=== PATIENT | female | born 1975 | race Caucasian/White ===

== ENCOUNTER 2025-02-05 06:58 | Outpatient (CLI) | payer OTHER, SELFPAY ==
--- NOTE | 2025-02-02 14:15 | CER_PTH ---
PATIENT: CHAVEZ ESPINOSA LOC: [facility] U#:[id number] AGE/SX: 50/F ROOM: RE02/05/[address]: Dr. Lacey Berumen DO : 1975 BED: DIS: 02/05/2025 SPEC #: [id number] RECD: 02/02/25 16:58 STATUS: JANA MANJU #: [id number] RIVER: 02/02/25 14:[address]: Lacey Berumen DEPT: SURGICAL PATHOLOGY RECD BY: Ghulam Raymond Tissues: A - Endocervical B - Uterine cervix, NOS Procedures: Surgery Specimen Level IV HEADER OPERATION: Colposcopy PRE-OP DIAGNOSIS: ASCUS HPV+ TISSUE SUBMITTED: A- ECC, B- 7o'clock MICROSCOPIC DIAGNOSIS A. Endocervix, ASCUS, HPV positive, curettage: - Focal atypical squamous mucosa with probable dysplasia - see note. - Scant benign endocervical epithelium. Note: The squamous epithelial fragment is very small and only a few cell layers thick so it is difficult to assess the dysplasia. A high grade dysplasia cannot be ruled out. B. Cervix, 7 o'clock, ASCUS, HPV positive, biopsy: - High grade SANTO (moderate dysplasia, YUE 2). MICROSCOPIC DESCRIPTION Slides are reviewed. GROSS DESCRIPTION Received in 2 formalin containers labeled with the patient's name and date of . A. Received in formalin labeled with the patient's name and date of . Designated as ECC are flecks of translucent mucoid material and possible tissue which is entirely submitted in 1 cassette, for cellblock preparation. B. Received in formalin labeled with the patient's name and date of . Designated as 7 o'clock are multiple capps tissue fragments, <0.1 cm to 0.3 cm. Entirely submitted in 1 cassette. SD 02/05/2025 CPT:95973p2
--- NOTE | 2025-02-02 14:15 | CER_PTH ---
PATIENT: CHAVEZ ESPINOSA LOC: [facility] U#:[id number] AGE/SX: 50/F ROOM: RE02/05/[address]: Dr. Lacey Berumen DO : 1975 BED: DIS: 02/05/2025 SPEC #: [id number] RECD: 02/02/25 16:58 STATUS: JANA MANJU #: [id number] RIVER: 02/02/25 14:[address]: Lacey Berumen DEPT: SURGICAL PATHOLOGY RECD BY: Ghulam Raymond Tissues: A - Endocervical B - Uterine cervix, NOS Procedures: Surgery Specimen Level IV HEADER OPERATION: Colposcopy PRE-OP DIAGNOSIS: ASCUS HPV+ TISSUE SUBMITTED: A- ECC, B- 7o'clock MICROSCOPIC DIAGNOSIS A. Endocervix, ASCUS, HPV positive, curettage: - Focal atypical squamous mucosa with probable dysplasia - see note. - Scant benign endocervical epithelium. Note: The squamous epithelial fragment is very small and only a few cell layers thick so it is difficult to assess the dysplasia. A high grade dysplasia cannot be ruled out. B. Cervix, 7 o'clock, ASCUS, HPV positive, biopsy: - High grade SANTO (moderate dysplasia, YUE 2). MICROSCOPIC DESCRIPTION Slides are reviewed. GROSS DESCRIPTION Received in 2 formalin containers labeled with the patient's name and date of . A. Received in formalin labeled with the patient's name and date of . Designated as ECC are flecks of translucent mucoid material and possible tissue which is entirely submitted in 1 cassette, for cellblock preparation. B. Received in formalin labeled with the patient's name and date of . Designated as 7 o'clock are multiple capps tissue fragments, <0.1 cm to 0.3 cm. Entirely submitted in 1 cassette. VT 02/05/2025 CPT:66209w9
--- OUTSIDE RECORDS SUMMARY | 2025-02-05 07:05 | XMS RPT_ITS | CCD ---
Author Organization [facility] Care Team Providers Care Environmental Compliance Engineer Name Role Phone PAN REYES Unavailable Unavailable NO FAMILY PHYSICIAN, 837 Unavailable Unavail able REFERRING, PHY WO ID Primary Care Physician Unav ailable REFERRING, PHY WO ID Attending Unavailable REFERRING, PHY WO ID Primary Care Unavailable Dr. Lacey Berumen DO Attending Provider Lacey Berumen Attending Unavailabl e Medications Current Medications Medication Drug Class(es) Dates Sig (Normalized) Sig (Original) Multivitamin tablet (1 source) Start: 02-02-2025 Multivitamin tablet Active 1 {tbl} PO daily February 02, 2025 12:00am Problems Problem Classification Problem Date Documented Date Episodic/Chronic Menopausal disorders (2 sources) Menopausal syndrome; Translations: [Menopausal and female climacteric states] Onset: 02-02-2025 02-02-2025 Chronic Osteoarthritis (1 source) Arthritis; Translations: [Unspecified osteoarthritis, unspecified site] 02-02-2025 Chronic Other complications of (1 source) Abnormal cytological finding on screening of mother; Translations: [Abnormal cytological finding on screening of mother] Onset: 02-02-2025 Episodic Other screening for suspected conditions (not mental disorders or infectious disease) (4 sources) Unspecified abnormal cytological findings in specimens from cervix uteri; Translations: [Encounter for screening for lipoid disorders] Onset: 02-02-2025 Episodic Viral infection (1 source) Papillomavirus as the cause of diseases classified elsewhere; Translations: [Papillomavirus as the cause of diseases classified elsewhere] Onset: 02-02-2025 Episodic Results Test Name Value Interpretation Reference Range Facility Assistant Professor Of Spanish Office Visit Reporton 02-02-2025 Assistant Professor Of Spanish Office Visit Report [facility] [address], [address] [place] [address] OFFICE VISIT Date of Service: 02/02/25 MR#: [id number] Acct: [id number] Name: CHAVEZ ESPINOSA Rep #: [id number] : 1975 Provider: Dr. 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 Is patient in pain?: No Allergies No Known Allergies Allergy (Unverified 02/02/25 13:14) Medications ???Medication ???Instructions ???Recorded ???Confirmed ???Type multivitamin 1 tab PO QDAY 02/02/25 02/02/25 Hi story Post menopausal: No Patient : No : No PFSH Surgical History (Updated 02/02/25 @ 13:15 by Sobeida Coleman) S/P tubal ligation Social History (Updated 02/02/25 @ 13:19 by Sobeida Coleman) adopted: Yes (foster care) Smoking Status: Current every day smoker alcohol intake: former year quit: 2017 substance use type: marijuana what type of physical activity do you participate in: swimming frequency: 3-4 times per week seatbelt use: always do you feel safe at home: Yes additional social history: Boyfriend- Alberto HPI Abnormal Pap, Poss Colposcopy *ok per JV Details: CHAVEZ ESPINOSA is a 50 year old who presents for colposcopy for ascus HPV + pap. She is also tearful about menopause symptoms including fatigue and low libido. She stopped menses at age 38. History 1 Elective abortions Hx Para 1 Spontaneous abortions Hx # Term Pregnancies Ectopic pregnancies Hx # Pregnancies Multiple births # of living children ROS Const ROS Unobtainable: All systems reviewed are unremarkable except as noted in H Resp Resp: Reports system reviewed and no additional complaints, except as documented; Denies cough GI GI: Reports as per HPI Psych Psych: Reports system reviewed and no additional complaints, except as documented Exam Const General: cooperative, healthy appearing, comfortable and no acute distress Resp Effort Inspection: normal respiratory effort General: bimanual renal exam normal bilaterally External Female Exam: normal appearance of the urethra Urethra: normal appearance of the urethra Speculum Exam - Vagina: normal appearance of the vagina Speculum Exam - Cervix: normal appearance of the cervix Bimanual Exam- Adnexa, other: normal adnexae and normal Pelvic Support: normal Skin General: no rashes or lesions noted Psych Appearance: grossly normal Speech and Movement: speech and movement normal Office Procedures Colposcopy Colposcopy Reason for colposcopy: ASCUS and positive HR HPV types Pap/YUE history: previous ASCUS pap Consent Signed: Yes Time out performed: Yes Acetowhite epithelium (cervix): 7 o'clock Punctation (cervix): none Abnormal vessels (cervix): 7 o'clock Biopsies (cervix): 7 o'clock biopsy Details: acetic acid was applied to the cervix and abnormal vessels and acetowhite changes were noted afrom 9:00 to 6:00. a biopsy ws taken at 7:00 and ECC was collected. Silver nitrite was used for hemostasis. Coding Level of Care Code Off vis,new,level 5 Diagnoses Female climacteric state N95.1 Assessment and Plan Assessment and Plan (1) Female climacteric state: Status: Deleted Plan: colposcopy with biopsy done today will order dexa, mammogram , and baseline labs to start the discussion about HRT. Her breast cancer risk calculator showed low risk for breast cancer 0.6% in 5 years. will need ASCVD risk assessment . Orders: Orders Colposcopy Today B97.7 - Papillomavirus as the cause of diseases classified elsewhere, O28.2 - Abnormal cytological finding on screening of mother, R87.619 - Unspecified abnormal cytological findings in specimens from cervix uteri Lipid Profile Today Z13.220 - Encounter for screening for lipoid disorders Glucose Today Z13.1 - Encounter for screening for diabetes mellitus Vitamin D,25 Hydroxy Today N95.1 - Menopausal and female climacteric states Thyroid Stim Hormone (TSH) Today Z13.29 - Encounter for screening for other suspected endocrine disorder Dexa Bone Density Study Today SCRN MAMM (CAD)W/MIRYAM BILAT Today 02/02/25 1400 Date Lacey Don Signature: Date (if applicable) CC: Normal [facility] XR HAND TWO VIEWS RIGHTon XR HAND TWO VIEWS RIGHT ORIGINAL EXAMINATION: TWO XRAY VIEWS OF THE RIGHT HAND 11/14/2022 11:38 am COMPARISON: None. HISTORY: ORDERING SYSTEM PROVIDED HISTORY: Reason for Exam: Pain entire right hand. No recent injury. FINDINGS: No fracture or dislocation of the right hand is present. There is moderate degenerative narrowing and spur formation at the articulation of the trapezium with the 1st metacarpal. Other joint spaces are maintained. There is no bone erosion or periosteal reaction. No soft tissue calcifications or foreign bodies are present. IMPRESSION: Moderate osteoarthrosis at the 1st carpometacarpal junction. Otherwise no remarkable findings. Interpreted by: Jayme Cowan MD Preliminary Report By: Jayme Cowan MD Electronically signed By Jayme Cowan MD Dictated Date: 11/15/2022 5:48:28 AM Prelim Date: 11/15/2022 5:50:13 AM Sign Date: 11/15/2022 5:50:13 AM Ordering Provider: JERI Matos [facility] ALCOHOL SERUMon 01-30-2017 Alcohol, Serum 31 mg/dL Normal [facility] Comment on above: Result Comment: Note : Alcohol values performed at [facility] are performed on Serum and reported in mg/dl, which is different then the state reporting units of g/dl which is performed on whole blood. Result reporting units are based on test methodology and are not interchangable. Performed By: #### 1 [id number] ####[facility] [address] [place] [address] Medical Director: Suman Bell MD Alcohol, Serum 241 mg/dL Normal [facility] Comment on above: Result Comment: Note : Alcohol values performed at [facility] are performed on Serum and reported in mg/dl, which is different then the state reporting units of g/dl which is performed on whole blood. Result reporting units are based on test methodology and are not interchangable. Performed By: #### 1 30119 ####[facility] [address] [place] [id number] Medical Director: Suman Bell MD AUTO DIFFon 01-30-2017 Basophils Auto #/vol (Bld) 0.12 x1000 Normal 0.00-0.20 [facility] Comment on above: Performed By: #### 1 49311, [id number], 663623, 109487 ####[facility] [address] [place] 28[address] Medical Director: Suman Bell MD Basos % 0.8 % Normal [facility] Comment on above: Performed By: #### 1 95460, [id number], 226164, 726235 ####[facility] [address] [place] [address] Medical Director: Suman Bell MD Eos Count 0.13 x1000 Normal 0.00-0.50 [facility] Comment on above: Performed By: #### 1 06997, 5069139, 153048, 633134 ####[facility] [address] [place] [address] Medical Director: Suman Bell MD Eosinophils/100 leukocytes 0.8 % Normal [facility] Comment on above: Performed By: #### 1 95022, 1546567, 708592, 738815 ####[facility] [address] [place] [address] Medical Director: Suman Bell MD Lymphocytes 3.69 x1000 Normal 1.20-4.80 [facility] Comment on above: Performed By: #### 1 16003, 8152365, 453349, 948277 ####[facility] [address] [place] [address] Medical Director: Suman Bell MD Lymphocytes/100 leukocytes 23.7 % Normal [facility] Comment on above: Performed By: #### 1 83496, 8154794, 558605, 626550 ####[facility] [address] [place] [address] Medical Director: Suman Bell MD [place] Count 0.58 x1000 Normal 0.10-1.00 [facility] Comment on above: Performed By: #### 1 22584, 0807834, 356365, 189511 ####[facility] [address] [place] [address] Medical Director: Suman Bell MD Monocytes/100 leukocytes 3.7 % Normal [facility] Comment on above: Performed By: #### 1 89083, 3084587, 311362, 412689 ####[facility] [address] [place] [address] Medical Director: Suman Bell MD Neutrophils 11.04 x1000 High 1.40-8.80 [facility] Comment on above: Performed By: #### 1 02048, 4923196, 892997, 039929 ####[facility] [address] [place] [address] Medical Director: Suman Bell MD Neutrophils/100 WBC Auto (Bld) 70.9 % Normal [facility] Comment on above: Performed By: #### 1 44146, 7728924, 509356, 454632 ####[facility] [address] [place] [address] Medical Director: Suman Bell MD Behavioral Health Consultati onon 01-30-2017 Behavioral Health Consultation Spoke with Sulaiman at [facility]. Stated he would send her information through to the pillowcase folder who will be in touch. Normal [facility] COMPMETAon 01-30-2017 Globulin 3.7 g/dL Normal [facility] Comment on above: Performed By: #### 1 33254, 6528594, 515104, 008967 ####[facility] [address] [place] [address] Medical Director: Suman Bell MD BUN/Creatinine Ratio 16.9 mg/mg Normal [facility] Comment on above: Performed By: #### 1 68771, 9961464, 864579, 084809 ####[facility] [address] [place] [address] Medical Director: Suman Bell MD eGFR (non-black) mL/min/{1.73_m2} Normal [facility] Comment on above: Result Comment: Non GFR CalcMedical judgement is necessary to interpret GFR. The calculated GFR may not accurately reflect renal status in patients >70 years, women, acutely ill hospitalized patients and patients with acute renal failure or known renal disease.Note:Creatinine clearance (not GFR) should be used for drug dosing. Performed By: #### 1 53518, 1030678, 465107, 616618 ####[facility] [address] [place] [address] Medical Director: Suman Bell MD Albumin/Globulin Ratio 1.1 {ratio} Normal [facility] Comment on above: Performed By: #### 1 70657, 4917138, 288148, 474906 ####[facility] [address] [place] [address] Medical Director: Suman Bell MD Osmolality 277 mOsm/kg Normal 275-295 [facility] Comment on above: Performed By: #### 1 , 6356060, 147784, 844688 ####[facility] [address] [place] [address] Medical Director: Suman Bell MD Alk Phos 84 unit/L Normal 45-117 [facility] Comment on above: Performed By: #### 1 56385, 0595248, 379359, 451026 ####[facility] [address] [place] [address] Medical Director: Suman Bell MD eGFR (non-black) mL/min/{1.73_m2} Normal [facility] Comment on above: Result Comment: Afri can Bangladeshi GFR Calc Performed By: #### 1 47074, 8070575, 467029, 583843 ####[facility] [address] [place] [address] Medical Director: Suman Bell MD Protein 7.6 g/dL Normal 6.0-8.5 [facility] Comment on above: Performed By: #### 1 68111, 0823455, 216926, 949313 ####[facility] [address] [place] [address] Medical Director: Suman Bell MD Bilirubin (total) 0.20 mg/dL Normal 0.20-1.00 [facility] Comment on above: Performed By: #### 1 55481, 6571612, 076230, 685598 ####[facility] [address] [place] [address] Medical Director: Suman Bell MD Creatinine 0.7 mg/dL Normal 0.6-1.0 [facility] Comment on above: Performed By: #### 1 57628, 7295748, 774696, 777857 ####[facility] [address] [place] [address] Medical Director: Suman Bell MD GPT 20 unit/L Normal 13-56 [facility] Comment on above: Performed By: #### 1 93129, 9852481, 806177, 476789 ####[facility] [address] [place] [address] Medical Director: Suman Bell MD Glucose mass conc 64 mg/dL Low 72-100 [facility] Comment on above: Performed By: #### 1 71402, 2228632, 384235, 847691 ####[facility] [address] [place] [address] Medical Director: Suman Bell MD GOT 22 unit/L Normal 15-37 [facility] Comment on above: Performed By: #### 1 76111, 8881393, 338209, 563956 ####[facility] [address] [place] [address] Medical Director: Suman Bell MD CO2 19.7 mmol/L Low 21.0-32.0 [facility] Comment on above: Performed By: #### 1 01093, 1171931, 158574, 542626 ####[facility] [address] [place] [address] Medical Director: Suman Bell MD Urea nitrogen 11 mg/dL Normal 10-20 [facility] Comment on above: Performed By: #### 1 28147, 5111305, 754655, 924464 ####[facility] [address] [place] [address] Medical Director: Suman Bell MD Albumin 3.9 g/dL Normal 3.4-5.0 [facility] Comment on above: Performed By: #### 1 44750, 9398777, 237881, 357605 ####[facility] [address] [place] [address] Medical Director: Suman Bell MD Calcium 8.5 mg/dL Normal 8.5-10.5 [facility] Comment on above: Performed By: #### 1 42611, 4961288, 940525, 313772 ####[facility] [address] [place] [address] Medical Director: Suman Bell MD Sodium 140 mmol/L Normal 135-145 [facility] Comment on above: Performed By: #### 1 37256, 6993545, 512695, 052519 ####[facility] [address] [place] [address] Medical Director: Suman Bell MD Potassium molar conc 4.0 mmol/L Normal 3.5-5.1 [facility] Comment on above: Performed By: #### 1 02835, 6861221, 956671, 246937 ####[facility] [address] [place] [address] Medical Director: Suman Bell MD Chloride 111 mmol/L High 100-109 [facility] Comment on above: Performed By: #### 1 68442, 6215554, 440180, 626960 ####[facility] [address] [place] [address] Medical Director: Suman Bell MD ED Physician Reporton 2016 ED Physician Report Patient: CHAVEZ ESPINOSA Age: 42 years Sex: Female : 1975 Associated Diagnoses: Acute depression; Alcohol abuse Author: DARRICK SALAZAR MD Basic Information Time seen: Time Seen:DARRICK SALAZAR MD / 01/29/2017 22:58. History source: Patient. Arrival mode: Private vehicle. History limitation: None. Additional information: Patient's physician(s): None. History of Present Illness The patient presents with Suicidal thoughts. The onset was unknown. The course/duration of symptoms is constant. Character of symptoms suicidal thoughts. Risk factors consist of alcohol abuse and PTSD. 42 year old female with history of PTSD presents to the ED for evaluation of suicidal thoughts. Pt does not deny or admit to suicidal ideation, but states she cannot sleep or function and she just wants it to stop. Pt admits to recent EtOH abuse history and that she has been trying to stop. She states she does not drink every day, she does not experience withdrawal symptoms, and that she just uses EtOH as a crutch. Pt states today was different because she started drinking and did not want to stop until she did not feel anything. She reports history of a hurt from the that never leaves her, stating it was something she did and something that was done to her. Pt is evasive with her answers and speaks with hesitation. She reports having a daughter and friends, but denies recent stress. Pt has no history of prior psych hospitalization, denies seeing a psychiatrist, and [facility] medical care [facility]. She has no medical complaints at this time. Pt voices concerns about going to alf and is anxious to go home. Pt's friend reports pt had tingling traveling down her arm one month ago [facility] which [facility] Patient voices no other concerns at this time. . Review of Systems Constitutional symptoms: Negative except as documented in HPI. Skin symptoms: Negative except as documented in HPI. Eye symptoms: Negative except as documented in HPI. ENMT symptoms: Negative except as documented in HPI. Respiratory symptoms: Negative except as documented in HPI. Cardiovascular symptoms: Negative except as documented in HPI. Gastrointestinal symptoms: Negative except as documented in HPI. Genitourinary symptoms: Negative except as documented in HPI. Musculoskeletal symptoms: Negative except as documented in HPI. Psychiatric symptoms: Negative except as documented in HPI. Endocrine symptoms: Negative except as documented in HPI. Hematologic/Lymphatic symptoms: Negative except as documented in HPI. Allergy/immunologic symptoms: Negative except as documented in HPI. Neurologic symptoms Negative except as documented in HPI. Additional review of systems information: All other systems reviewed and otherwise negative. Health Status Allergies: Allergic Reactions (All)No Known Allergies. Medications: (Selected) , per nurse's notes. Past Medical/ Family/ Social History Medical history: No active or resolved past medical history items have been selected or recorded., Reviewed as documented in chart. Surgical history: No active procedure history items have been selected or recorded., Reviewed as documented in chart. Family history: No family history items have been selected or recorded., Reviewed as documented in chart. Social history: Alcohol use: Regularly, history of alcohol abuse. Problem list: Active Problems (2)PTSD (post-traumatic stress disorder) Suicidal thoughts , per nurse's notes. Physical Examination Vital Signs Vital Signs 01/29/2017 22:54 EDT Temperature Oral 37.4 degC HI Peripheral Pulse Rate 122 bpm HI Respiratory Rate 16 br/min NORMAL Systolic Blood Pressure 124 mmHg NORMAL Diastolic Blood Pressure 84 mmHg NORMAL SpO2 95 % NORMAL Oxygen Therapy Room air Height/Length Dosing 157.48 cm Weight Dosing 59.1 kg Body Mass Index Dosing 24 . Per nurse's notes. General: Alert. Skin: Warm, dry, no rash. Head: Normocephalic, atraumatic. Neck: Supple, trachea midline. Eye: Pupils are equal, round and reactive to light, extraocular movements are intact. Ears, nose, mouth and throat: Oral mucosa moist. Cardiovascular: Regular rate and rhythm, No murmur, No edema. Respiratory: Lungs are clear to auscultation, respirations are non-labored, breath sounds are equal. Gastrointestinal: Soft, Nontender, Non distended, Normal bowel sounds. Back: Normal range of motion. Musculoskeletal: Normal ROM, normal strength. Psychiatric: Evasive, tearful. Neurological Alert and oriented to person, place, time, and situation, No focal neurological deficit observed, normal sensory observed, normal motor observed, normal speech observed. Medical Decision Making Documents reviewed: Emergency department nurses' notes, flowsheet, emergency department records, prior records. Results review: Lab results : Laboratory 01/30/2017 0:59 EDT Estimated Creatinine Clearance 81.11 mL/min 01/29/2017 23:48 EDT BUN 11 mg/dL NORMAL Na 140 mmol/L NORMAL K 4.0 mmol/L NORMAL Chloride 111 mmol/L HI CO2, venous 19.7 mmol/L LOW Glucose 64 mg/dL LOW Creatinine 0.7 mg/dL NORMAL Total Protein 7.6 g/dL NORMAL Calcium 8.5 mg/dL NORMAL Bilirubin, Total 0.20 mg/dL NORMAL Alk Phos 84 unit/L NORMAL GOT 22 unit/L NORMAL GPT 20 unit/L NORMAL BUN/Creat Ratio 16.9 NA Calculated Osmolality 277 mOsm/kg NORMAL Globulin 3.7 g/dL NA A/G Ratio 1.1 NA Free T4 1.11 ng/dL NORMAL TSH 0.58 uIU/ml NORMAL ALB 3.9 g/dL NORMAL Alcohol, Serum 241 mg/dL NA Glomerular Filtration Rate >60 mL/min/1.73m? NA GFR AA >60 NA WBC 15.6 x10 RBC 4.42 x10 HGB 14.5 g/dL NORMAL HCT 43.3 % NORMAL MCV 98.0 fL NORMAL MCH 32.8 pg NORMAL MCHC 33.5 g/dL NORMAL RDW 13.6 NORMAL Platelet 310 x1000 NORMAL MPV 8.9 fL NORMAL Nucleated RBC% 0 /100WC NA Lymph % 23.7 % NA [place] % 3.7 % NA Neutrophil % 70.9 % NA Eosin % 0.8 % NA Basos % 0.8 % NA Lymph Count 3.69 x1000 NORMAL [place] Count 0.58 x1000 NORMAL Neutrophil Count (ANC) 11.04 x1000 HI Eos Count 0.13 x1000 NORMAL Baso Count 0.12 x1000 NORMAL 01/29/2017 22:52 EDT Color, U Yellow Appearance, U Clear Specific [place], U 1.011 NORMAL pH, U 5.0 NORMAL Protein, U Negative Glucose Qual, U Negative Ketones, U Trace Bilirubin, U Negative Blood, U Moderate Urobilinogen Qual, U <2.0 mg/dl Nitrite, U Negative Leukocyte Esterase, U Negative RBC/HPF, U <1 #/HPF NORMAL WBC/HPF, U 1 #/HPF NORMAL Squamous Epithelial Cells, U 1 #/HPF NA Bacteria, U Occasional Hyaline Cast <1 #/HPF NA Amphetamines, U Negative Barbituates, U Negative PCP, U Negative Benzodiazepines, U Negative Cocaine, U Negative THC, U Negative Opiates, U Negative Ecstasy, U Negative . Patient was observed until clinically sober. She is medically cleared for psychiatric evaluation. She will be evaluated by [place] when they arrive at 8 AM today. [facility] Reexamination/ Reevaluation Notes: Re-examSpoke with friend outside pt's room. He mentioned she threatened to eat a bullet which was his concern for bringing her into the ED. Friend states they do have guns, but he currently took them out of the house. Scribe signature: micheal Sue 01/30/2017, 03:55.. Impression and Plan Diagnosis Acute depression (VDV66-TW F32.9, Working, Medical) Alcohol abuse ([id number] F10.10, Working, Medical) Plan Counseled: Patient, Family, Regarding diagnosis, Regarding diagnostic results, Regarding treatment plan, Patient indicated understanding of instructions, Family understood. Notes: I, Lulú Franklin, am scribing for and in the presence of Dr. Darrick Salazar [facility] Signature: Micheal Sue, 01/29/2017 23:38 , I personally performed the services described in the documentation, reviewed the documentation recorded by the scribe in my presence and it accurately and completely records my words and actions. Fred SALAZAR MD 01/30/2017 06:39 Normal [facility] ED Progress Noteon 7 ED Progress Note Pt arrived with c/o suicidal thoughts. Pt states I am crazy, I can't explain it I can't focus. 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 Pt states she can't stop the hurt and guilt, it doesn't go away, even when she closes her eyes. Pt states she was drinking daily and that helped, but tried to stop drinking, now drinking several days/week and having insomnia. Pt states she feels guilty that she is a mother and she doesn't know how to function anymore. Pt speaking with pauses in between each word. Friend at bedside. Pt tearful, emotional support given.When asked if she's suicidal or if she has a plan, pt does not directly answer questions. Pt states it's not that I want to eat a bullet.When asked if pt takes medication at home she states she drinks alcohol. When asked how much she drinks she states too much. Pt states she drinks beer, wine and liquer.0200- patient moved up from another exam room assumed care from RN pt sitting up in bed with no c/o pain or signs of distress. friend at bedside. call coyle within reach and safety maintained.- pt resting quietly with eyes closed and no signs of distress. friend still at the bedside. call coyle within reach and safety maintained.error 0200 report from Dimitri [id number]- pt resting quietly at this time with eyes closed and no signs of distress. friend is at bedsdie and denied any needs. call coyle within reach and safety maintained.0502 patient resting quietly at this time with eyes closed no signs of distress. friend at bedside. call coyle within reach and safety maintained.0608 patient resting quietly with eyes closed and no signs of distress. friend at bedside. call coyle within reach and safety maintained.0638- pat resting quietly at this time with no signs of distress awoke easily when I obtained her vitals pt was cooperative and calm. pt had no signs of distress. friend is still at the bedside. call coyle within reach and safety maintained.0702 placed a repeat blood alcohol serum per protocol patient is resting quietly at this time with eyes closed no signs of distress. friend is at the bedside. call coyle within reach and safety maintained.0712- behavioral health credit specialist in the room currently with the patient.0717- report given aliza RNverbal report called to DC [facility]. pt is ready for transfer to [id number]- ASSUMED CARE OF PTPT RESTING IN BEDC/O 10/19 HEADACHE- DENIES PAIN MEDS AT THIS TIMEUPDATED [facility]/O AT THIS TIMEREPORT CALLED TO DC BY PREVIOUS NURSESAFETY [id number] PHYSICIANS CALLED FOR UPDATED ON ETA- THEY ARE PULLING INTO THE HOSPITAL [id number]- PT D/C VIA PHYSICIANS TO [facility] WITH [id number]- LATE ENTRY- JEWERLY TAKEN OFF, LABELED AND PLACED IN BELONGINGS -- 1 PAIR OF EARRINGS, BRACELET AND 3 RINGS Normal [facility] HEMOon 01-30-2017 DIFF? No Normal [facility] Comment on above: Performed By: #### 1 89626, [id number], 455262, 419132 ####[facility] [address]chpt[address]39[address] [place] [address] Medical Director: Suman Bell MD Erythrocyte distribution width Auto Ratio (RBC) 13.6 % Normal 11.5-14.5 [facility] Comment on above: Performed By: #### 1 03081, [id number], 250612, 800381 ####[facility] Qwkjkvep80253 [place], [place] [id number]) [phone] Director: Suman Bell MD Erythrocytes (RBC) 4.42 x10 Normal 4.20-5.40 [facility] Comment on above: Result Comment: Note : RBC morphology is normal unless otherwise stated. Evaluation performed only if differential is requested. Performed By: #### 1 98464, [id number], 084835, 413738 ####[facility] [address]qrsvzl48834 [place] [address] Medical Director: Suman Bell MD Hematocrit (HCT) 43.3 % Normal 36.0-46.0 [facility] Comment on above: Performed By: #### 1 32027, 0748707, 444429, 088401 ####[facility] [address]robbj77166 [place] [address] Medical Director: Suman Bell MD Hemoglobin mass conc (Bld) 14.5 g/dL Normal 12.0-16.0 [facility] Comment on above: Performed By: #### 1 54185, [id number], 148543, 713190 ####[facility] I[address]ypwa[address] [place] [address] Medical Director: Suman Bell MD MCH 32.8 pg Normal 27.0-34.0 [facility] Comment on above: Performed By: #### 1 15435, [id number], 902416, 520119 ####[facility] [address]ecqdv07[address] [place] [address] Medical Director: Suman Bell MD MCHC mass conc (RBC) 33.5 g/dL Normal 32.0-37.0 [facility] Comment on above: Performed By: #### 1 25908, 5320669, 537986, 329213 ####[facility] [address]fmbh[address] [place] [address] Medical Director: Suman Bell MD MCV 98.0 fL Normal 80.0-100.0 [facility] Comment on above: Performed By: #### 1 18584, 2683051, 142067, 908994 ####[facility] Cpsuttgc996[address] [place] [address] Medical Director: Suman Bell MD Nucleated RBC% 0 /100WC Normal [facility] Comment on above: Performed By: #### 1 90987, 0638602, 318406, 470190 ####[facility] Nrgyncgf56440 [place] [address] Medical Director: Suman Bell MD Platelet mean volume (PMV) 8.9 fL Normal 7.4-10.4 [facility] Comment on above: Performed By: #### 1 47567, 6233933, 738301, 586471 ####[facility] [address]fh[address]qa12[address] [place] [address] Medical Director: Suman Bell MD Platelets 310 x1000 Normal 150-450 [facility] Comment on above: Performed By: #### 1 47922, 6940453, 710721, 026138 ####[facility] [address]oyvjy64253 [place] [address] Medical Director: Suman Bell MD WBC (Leukocytes) 15.6 x10 High 4.5-11.0 [facility] Comment on above: Performed By: #### 1 15525, 2321212, 826949, 333470 ####[facility] [address]pe[address]ie[address] [place] [address] Medical Director: Suman Bell MD WBC (Leukocytes) 15.6 10*3/uL Normal [facility] Comment on above: Performed By: #### 1 23262, 6475422, 046146, 576347 ####[facility] [address]gyu[address] [place] [address] Medical Director: Suman Bell MD THY GPon 01-30-2017 Thyroid stimulating hormone (TSH) 0.58 uIU/ml Normal 0.36-3.74 [facility] Comment on above: Performed By: #### 1 26492, 3856664, 036700, 390649 ####[facility] Busvpymj52970 [place] [address] Medical Director: Suman Bell MD Thyroxine (T4) free 1.11 ng/dL Normal 0.76-1.46 [facility] Comment on above: Performed By: #### 1 82359, 5350792, 006170, 112744 ####[facility] [address]cadt[address] [place] [address] Medical Director: Suman Bell MD U DOAon 01-30-2017 Amphetamines, U Negative Normal [facility] Comment on above: Result Comment: Urin e for Drugs of Abuse tests (U Amphetamines, U Barbituates, U PCP, U Benzodiazepines, U Cocaine, U THC, U Opiates & U Ecstasy)provide preliminary test results only. A more specific alternate method must be used in order to obtain a confirmed analytical result. Gas chromatography/mass spectrometry is the preferred confirmatory method. Clinical consideration and professional judgment should be applied to any drug of abuse test result, particularly when preliminary positive results are used.Urine for Drugs of Abuse [place] Levels:Barbiturate 200 ng/ml PCP 25 ng/ml Cocaine 300 ng/ml Opiates 2000 ng/ml Amphetamines 1000 ng/ml Benzodiazepines 200 ng/ml THC 50 ng/ml EXTC 500 ng/ml Performed By: #### 1 52469 ####[facility] [address]mkn914[address] [place] [address] Medical Director: Suman Bell MD Barbituates, U Negative Normal [facility] Comment on above: Performed By: #### 1 80431 ####[facility] [address]nmsnkst12692 [place] [address] Medical Director: Suman Bell MD Benzodiazepines, U Negative Normal [facility] Comment on above: Performed By: #### 1 77614 ####[facility] [address]meseurv71489 [place] [address] Medical Director: Suman Bell MD Cocaine, U Negative Normal [facility] Comment on above: Performed By: #### 1 14898 ####[facility] [address]xyktzdh667[address] [place] [address] Medical Director: Suman Bell MD Ecstasy, U Negative Normal [facility] Comment on above: Performed By: #### 1 84408 ####[facility] Zhzaytfa88827 [place] [address] Medical Director: Suman Bell MD Opiates, U Negative Normal [facility] Comment on above: Performed By: #### 1 36216 ####[facility] Sspmvvyv32195 [place], [place] [id number]) [phone] Director: Suman Bell MD PCP, U Negative Normal [facility] Comment on above: Performed By: #### 1 72074 ####[facility] Vkvijdwn44[address] [place], [place] [id number]) [phone] Director: Suman Bell MD THC, U Negative Normal [facility] Comment on above: Performed By: #### 1 95393 ####[facility] Qsvlycne18646 [place], [place] [id number]) [phone] Director: Suman Bell MD UAon 01-30-2017 U MICRO Indicated Normal [facility] Comment on above: Performed By: #### 1 87159 ####[facility] Agnzrmer40261 [place], [place] [id number]) [phone] Director: Suman Bell MD Appearance, U Clear Normal [facility] Comment on above: Performed By: #### 1 79794 ####[facility] Gdbmdvjv43996 [place], [place] [id number]) [phone] Director: Suman Bell MD Bacteria, U Occasional Normal [facility] Comment on above: Performed By: #### 1 33507 ####[facility] Mglnwggp71547 [place], [place] [id number]) [phone] Director: Suman Bell MD Bilirubin (direct) Negative Normal Negative [facility] Comment on above: Performed By: #### 1 00704 ####[facility] Chhrwazz53195 [place], [place] [id number]) [phone] Director: Suman Bell MD Blood, U Moderate Abnormal Negative [facility] Comment on above: Performed By: #### 1 18715 ####[facility] Bxtuijob88922 [place], [place] [id number]) [phone] Director: Suman Bell MD Color, U Yellow Normal [facility] Comment on above: Performed By: #### 1 81850 ####[facility] Aiihqdue73821 [place] [address] Medical Director: Suman Bell MD Erythrocytes (RBC) 10*6/uL Normal 0-3 [facility] Comment on above: Performed By: #### 1 86914 ####[facility] Ehkzmate12560 [place] [address] Medical Director: Suman Bell MD Glucose Qual, U Negative Normal Negative [facility] Comment on above: Performed By: #### 1 26692 ####[facility] Sspsnpax58328 [place] [address] Medical Director: Suman Bell MD Hyaline Cast <1 Normal [facility] Comment on above: Performed By: #### 1 90016 ####[facility] Zxmdtcqj80669 [place] [address] Medical Director: Suman Bell MD Ketones, U Trace Abnormal Negative [facility] Comment on above: Performed By: #### 1 58324 ####[facility] Qqbxekbb77838 [place] [address] Medical Director: Suman Bell MD Leukocyte Esterase, U Negative Normal Negative [facility] Comment on above: Performed By: #### 1 91941 ####[facility] Rrrjvzdq87823 [place] [address] Medical Director: Suman Bell MD Nitrite, U Negative Normal Negative [facility] Comment on above: Performed By: #### 1 11629 ####[facility] Hmkfturm51175 [place] [address] Medical Director: Suman Bell MD pH, U 5.0 Normal 4.5-8.0 [facility] Comment on above: Performed By: #### 1 87438 ####[facility] [address]nsqyhka27231 [place] [address] Medical Director: Suman Bell MD Protein, U Negative Normal Negative [facility] Comment on above: Performed By: #### 1 73074 ####[facility] Uisisbem51959 [place], [place] [id number]) [phone] Director: Suman Bell MD Specific [place], U 1.011 Normal 1.001-1.035 [facility] Comment on above: Performed By: #### 1 57671 ####[facility] Fhyxaxrz41350 [place], [place] [id number]) [phone] Director: Suman Bell MD Squamous Epithelial Cells, U 1 #/HPF Normal [facility] Comment on above: Performed By: #### 1 59110 ####[facility] Lisqgube98412 [place], [place] [id number]) [phone] Director: Suman Bell MD Urobilinogen Qual, U <2.0 mg/dl Normal <2.0 mg/dl [facility] Comment on above: Result Comment: EU/d l and mg/dl are equivalent units. Performed By: #### 1 35801 ####[facility] Gbqledvm99707 [place], [place] [id number]) [phone] Director: Suman Bell MD WBC (Leukocytes) 1 #/HPF Normal 0-5 [facility] Comment on above: Performed By: #### 1 16467 ####[facility] [address] [place] [address] Medical Director: Suman Bell MD Vital Signs Date Time Vital Sign Value Performing Clinician Matilde cui 02-02-2025 13:14-0400 Body height 157.[address] Lacey Berumen DO Work Phone: [facility] 02-02-2025 13:14-0400 Body mass index (BMI) [Ratio] 24.2 kg/m2 Dr. Lacey Berumen DO Work Phone: [facility] 02-02-2025 13:14-0400 Body weight 60.[address] Lacey Berumen DO Work Phone: [facility] 02-02-2025 13:14-0400 Diastolic blood pressure 83 mm[Hg] Dr. Lacey Berumen DO Work Phone: [facility] 02-02-2025 13:14-0400 Systolic blood pressure 114 mm[Hg] Dr. Lacey Berumen DO Work Phone: [facility] Encounters Encounter Date Encounter Type Care Provider Facility Start: 02-02-2025 End: 02-02-[address] Lacey Berumen DO -[facility] Work Phone: Start: 02-02-2025 End: 02-02-[address] [facility] Start: 11-14-2022 End: 11-15-2022 ambulatory PHY WO ID REFERRING Facility:A Start: 11-14-2022 End: 11-14-2022 Patient encounter procedure PHY WO ID REFERRING [facility] Start: 01-30-2017 End: 01-30-2017 Emergency department patient visit [facility] Facility:[id number] Plan of Treatment Date Care Activity Detail Author DXA Bone [Mass/Area] Bone density [facility] Glucose [Mass/volume] in Serum or Plasma [facility] Lipid 1996 panel - Serum or Plasma [facility] MG Breast - bilateral Screening [facility] Thyroid stimulating hormone measurement [facility] Vitamin D, 25-hydroxy measurement [facility] Payers Date Payer Category Payer Self-pay 2025 Unknown [id number] 2022 Unknown [id number] 1975 Unknown [id number] Unknown [id number] Social History Date Type Detail Facility Tobacco smoking status [facility] Start: 1975 Sex Assigned At Female A [facility] Start: 02-02-2025 Tobacco smoking stat us MDIS Smokes tobacco daily (finding) [facility] Evaluation + Plan note Note Date & Type Note Facility Evaluation + Plan note No data available for this section [facility] Evaluation note Note Date & Type Note Facility Evaluation note No assessment information availa minerva [facility] Work Phone: Hospital Discharge instructions Note Date & Type Note Facility Hospital Discharge instructions No data available for this section [facility] Progress note Note Date & Type Note Facility Progress note No data available for this section [facility] Reason for referral (narrative) Note Date & Type Note Facility Reason for referral (narrative) No reason for referral information available [facility] Work Phone: Summary Purpose Family History No Family History Records FoundNo Family History Records FoundNo Family History Records Found Advance Directives No Advanced Directives Records FoundNo Advanced Directives Records FoundNo Advanced Directives Records Found Chief Complaint and Reason for Visit Chief Complaint Admit Date Abnormal Pap, Poss Colposcopy *ok per JV February 02, 2025 12:51pm Additional Source Comments INFORMATION SOURCE (unrecogn ized section and content) DATE CREATED AUTHOR 2018 [facility] DATE CREATED AUTHOR AUTHOR'S ORGANIZ ATION 11/17/2022 [facility] ([place]) DATE CREATED AUTHOR AUTHOR'S ORGANIZ ATION 02/03/2025 [facility] Patient Care team informatio n (unrecognized section and content) Team Status: Inactive Member Role/Relationship Status Dates Dr. Lacey Berumen DO Attending Provider Activ e Start: February 02, 2025 End: February 02, 2025 Goals (unrecognized section and content) Goals may be documented in a n alternate section FOR RECORDS PERTAINING TO PATIENTS WHO ARE OR HAVE BEEN ENROLLED IN A CHEMICAL DEPENDENCY/SUBSTANCEABUSE PROGRAM, SOME INFORMATION MAY BE OMITTED. This clinical summary was aggregated from multiple sources. Caution should be exercised in using it in the provision of clinical care. This summary normalizes information from multiple sources, and as a consequence, information in this document may materially change the coding, format and clinical context of patient data. In addition, data may be omitted in some cases. CLINICAL DECISIONS SHOULD BE BASED ON THE PRIMARY CLINICAL RECORDS. [employer] [facility]. provides no warranty or guarantee of the accuracy or completeness of information in this document.
--- OUTSIDE RECORDS SUMMARY | 2025-02-05 07:05 | XMS RPT_ITS | CCD ---
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 Lacey Wetzel DO Age/Sex: 50/F Location: [facility] Status: Signed Intake Vital Signs 02/02/25 13:14 Height 5 ft 2 in Weight: 132 lb 6 oz BMI 24.2 BP 114/83 H Intake Visit Reasons: Abnormal Pap, Poss Colposcopy *ok per JV Xray Tech Required: No Is patient in pain?: No [...] Don Signature: Date (if applicable) CC: Normal [facility] XR HAND TWO VIEWS RIGHTon XR [...] 11/15/2022 5:50:13 AM Ordering Provider: JERI Matos [facility] ([facility]) ALCOHOL SERUMon 01-30-2017 Alcohol, Serum 31 mg/dL Normal [facility] Comment on above: Result Comment: Note : Alcohol values performed at [facility] are performed on Serum and reported in mg/dl, which is different then the state reporting units of g/dl which is performed on whole blood. Result reporting units are based on test methodology and are not interchangable. Performed By: #### 1 51357 ####[facility] Iyoltuxj75580 [place] [address] Medical Director: Suman Bell MD Alcohol, Serum 241 mg/dL Normal [facility] Comment on above: Result Comment: Note : Alcohol values performed at [facility] are performed on Serum and reported in mg/dl, which is different then the state reporting units of g/dl which is performed on whole blood. Result reporting units are based on test methodology and are not interchangable. Performed By: #### 1 69075 ####[facility] [address]xslljkk058[address] [place] [id number] Medical Director: Suman Bell MD AUTO DIFFon 01-30-2017 Basophils Auto #/vol (Bld) 0.12 x1000 Normal 0.00-0.20 [facility] Comment on above: Performed By: #### 1 93547, 8207933, 872927, 246143 ####[facility] Zianociw[address] [place] 4058730 Medical Director: Suman Bell MD Basos % 0.8 % Normal [facility] Comment on above: Performed By: #### 1 29122, 5036257, 864006, 047693 ####[facility] [address] [place] [address] Medical Director: Suman Bell MD Eos Count 0.13 x1000 Normal 0.00-0.50 [facility] Comment on above: Performed By: #### 1 28189, 8556038, 501675, 838065 ####[facility] Ahqvpdmu56326 [place] [address] Medical Director: Suman Bell MD Eosinophils/100 leukocytes 0.8 % Normal [facility] Comment on above: Performed By: #### 1 22554, 7539930, 785219, 220403 ####[facility] Sidtshqj35899 [place] [address] Medical Director: Suman Bell MD Lymphocytes 3.69 x1000 Normal 1.20-4.80 [facility] Comment on above: Performed By: #### 1 33658, 0264177, 362380, 504608 ####[facility] Xriwvhki88244 [place] [address] Medical Director: Suman Bell MD Lymphocytes/100 leukocytes 23.7 % Normal [facility] Comment on above: Performed By: #### 1 94202, 3986947, 794098, 514031 ####[facility] Kheypnii49490 [place] [address] Medical Director: Suman Bell MD Dyer Count 0.58 x1000 Normal 0.10-1.00 [facility] Comment on above: Performed By: #### 1 22165, 4042581, 673820, 394009 ####[facility] Hrewnlxf35242 [place] [address] Medical Director: Suman Bell MD Monocytes/100 leukocytes 3.7 % Normal [facility] Comment on above: Performed By: #### 1 12041, 7567950, 513187, 416141 ####[facility] Volmylxx40030 [place] [address] Medical Director: Suman Bell MD Neutrophils 11.04 x1000 High 1.40-8.80 [facility] Comment on above: Performed By: #### 1 05435, 0564717, 258270, 566186 ####[facility] Hdeqwaww69752 [place] [address] Medical Director: Suman Bell MD Neutrophils/100 WBC Auto (Bld) 70.9 % Normal [facility] Comment on above: Performed By: #### 1 20095, 6556413, 293016, 680433 ####[facility] Gtkswwyt39455 [place] [address] Medical Director: Suman Bell MD Behavioral Health Consultati onon 01-30-2017 Behavioral Health Consultation Spoke with [place] at [place]. Stated he would send her information through to the case manager specialist who will be in touch. Normal [facility] COMPMETAon 01-30-2017 Globulin 3.7 g/dL Normal [facility] Comment on above: Performed By: #### 1 81734, 2875189, 105988, 216877 ####[facility] Zuulzpkj43368 [place] [address] Medical Director: Suman Bell MD BUN/Creatinine Ratio 16.9 mg/mg Normal [facility] Comment on above: Performed By: #### 1 95710, 4222042, 097722, 530840 ####[facility] Vylsoqfu48494 [place] [address] Medical Director: Suman Bell MD eGFR (non-black) mL/min/{1.73_m2} Normal So [facility] Comment on above: Result Comment: Non GFR CalcMedical judgement is necessary to interpret GFR. The calculated GFR may not accurately reflect renal status in patients >70 years, women, acutely ill hospitalized patients and patients with acute renal failure or known renal disease.Note:Creatinine clearance (not GFR) should be used for drug dosing. Performed By: #### 1 32762, 5543635, 883052, 998714 ####[facility] Wyhousbe48707 [place] [address] Medical Director: Suman Bell MD Albumin/Globulin Ratio 1.1 {ratio} Normal [facility] Comment on above: Performed By: #### 1 32751, 9645549, 387092, 944314 ####[facility] Drfdtrcb10389 [place] [address] Medical Director: Suman Bell MD Osmolality 277 mOsm/kg Normal 275-295 [facility] Comment on above: Performed By: #### 1 , 9100079, 553140, 780525 ####[facility] Eyuhizov36669 [place] [address] Medical Director: Suman Bell MD Alk Phos 84 unit/L Normal 45-117 [facility] Comment on above: Performed By: #### 1 38944, 6874050, 573764, 596965 ####[facility] Czumfaeb12505 [place] [address] Medical Director: Suman Bell MD eGFR (non-black) mL/min/{1.73_m2} Normal So [facility] Comment on above: Result Comment: Afri can Prydeinig GFR Calc Performed By: #### 1 68637, 3396162, 834017, 124320 ####[facility] Wpbhawnt02216 [place] [address] Medical Director: Suman Bell MD Protein 7.6 g/dL Normal 6.0-8.5 [facility] Comment on above: Performed By: #### 1 99207, 1235229, 075951, 845861 ####[facility] Vvmdmgzx57239 [place] [address] Medical Director: Suman Bell MD Bilirubin (total) 0.20 mg/dL Normal 0.20-1.00 [facility] Comment on above: Performed By: #### 1 78039, 8008275, 632869, 436343 ####[facility] Dwxfphhb80826 [place] [address] Medical Director: Suman Bell MD Creatinine 0.7 mg/dL Normal 0.6-1.0 [facility] Comment on above: Performed By: #### 1 37723, 8516705, 112163, 841562 ####[facility] Kvespeqr58081 [place] [address] Medical Director: Suman Bell MD GPT 20 unit/L Normal 13-56 [facility] Comment on above: Performed By: #### 1 83327, 6570524, 496702, 471149 ####[facility] Tvyulgac52315 [place] [address] Medical Director: Suman Bell MD Glucose mass conc 64 mg/dL Low 72-100 [facility] Comment on above: Performed By: #### 1 31821, 0428348, 753459, 703424 ####[facility] Xsmhcsqb53150 [place] [address] Medical Director: Suman Bell MD GOT 22 unit/L Normal 15-37 [facility] Comment on above: Performed By: #### 1 36889, 9586694, 782138, 930446 ####[facility] Yoauqbuu07248 [place] [address] Medical Director: Suman Bell MD CO2 19.7 mmol/L Low 21.0-32.0 [facility] Comment on above: Performed By: #### 1 02299, 7237103, 136918, 774148 ####[facility] Xgovxilk96199 [place] [address] Medical Director: Suman Bell MD Urea nitrogen 11 mg/dL Normal 10-20 [facility] Comment on above: Performed By: #### 1 51208, 9381526, 947006, 396716 ####[facility] Cjevtwji23194 [place] [address] Medical Director: Suman Bell MD Albumin 3.9 g/dL Normal 3.4-5.0 [facility] Comment on above: Performed By: #### 1 83580, 4246711, 445455, 801597 ####[facility] Tlozjbbw92609 [place] [address] Medical Director: Suman Bell MD Calcium 8.5 mg/dL Normal 8.5-10.5 [facility] Comment on above: Performed By: #### 1 55486, 5626068, 175491, 024940 ####[facility] Qemhhpfn98936 [place] [address] Medical Director: Suman Bell MD Sodium 140 mmol/L Normal 135-145 [facility] Comment on above: Performed By: #### 1 97815, 3409037, 119250, 717630 ####[facility] Inzusxwz22312 [place] [address] Medical Director: Suman Bell MD Potassium molar conc 4.0 mmol/L Normal 3.5-5.1 [facility] Comment on above: Performed By: #### 1 94269, 1895779, 548695, 926383 ####[facility] Zsxyqhwi19177 [place] [address] Medical Director: Suman Bell MD Chloride 111 mmol/L High 100-109 [facility] Comment on above: Performed By: #### 1 01600, 1580836, 694216, 154634 ####[facility] Mbtimyex69836 [place] [address] Medical Director: Suman Bell MD ED Physician [...] psychiatrist, and receives medical care at the [place]. She has no medical complaints at this time. Pt voices concerns about going to shelter and is anxious to go home. Pt's [...] /100WC NA Lymph % 23.7 % NA Dyer % 3.7 % NA Neutrophil % 70.9 % NA Eosin % 0.8 % NA Basos % 0.8 % NA Lymph Count 3.69 x1000 NORMAL Dyer Count 0.58 x1000 NORMAL Neutrophil Count (ANC) 11.04 x1000 HI Eos Count 0.13 x1000 NORMAL Baso Count 0.12 x1000 NORMAL 01/29/2017 22:52 EDT Color, U Yellow Appearance, U Clear Specific [place], U 1.011 NORMAL pH, U 5.0 NORMAL [...] psychiatric evaluation. She will be evaluated by [facility] when they arrive at 8 AM today. [...] 03:55.. 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 Notes: I, Lulú Franklin, am scribing for and in the presence of Dr. Darrick Salazar [facility] Signature: Micheal Sue, 01/29/2017 23:38 , I personally performed the services described in the documentation, reviewed the documentation recorded by the scribe in my presence and it accurately and completely records my words and actions. Fred SALAZAR MD 01/30/2017 06:39 Normal [facility] ED Progress Noteon 7 ED Progress Note [...] and safety maintained.error 0200 report from Dimitri [id number]- pt resting quietly at this time with [...] within reach and safety maintained.0712- behavioral health case specialist in the room currently with the patient.0717- report given aliza RNverbal report called to [place] [facility] CLERK. pt is ready for transfer to [id number]- ASSUMED CARE OF PTPT RESTING IN BEDC/O 10/19 HEADACHE- DENIES PAIN MEDS AT THIS TIMEUPDATED [facility] AT THIS TIMEREPORT CALLED TO [place] BY PREVIOUS NURSESAFETY [id number] PHYSICIANS CALLED FOR UPDATED ON ETA- THEY ARE PULLING INTO THE HOSPITAL [id number]- PT D/C VIA PHYSICIANS TO [facility] WITH [id number]- LATE ENTRY- JEWERLY TAKEN OFF, LABELED AND PLACED IN BELONGINGS -- 1 PAIR OF EARRINGS, BRACELET AND 3 RINGS Normal [facility] HEMOon 01-30-2017 DIFF? No Normal [facility] Comment on above: Performed By: #### 1 11332, 9904103, 470667, 789805 ####[facility] Fkctwbtg89677 [place] [address] Medical Director: Suman Bell MD Erythrocyte distribution width Auto Ratio (RBC) 13.6 % Normal 11.5-14.5 [facility] Comment on above: Performed By: #### 1 85697, 7064701, 858154, 646966 ####[facility] Ojoobtlc66594 [place], [place] [address]) [phone] Director: Suman Bell MD Erythrocytes (RBC) 4.42 x10 Normal 4.20-5.40 [facility] Comment on above: Result Comment: Note : RBC morphology is normal unless otherwise stated. Evaluation performed only if differential is requested. Performed By: #### 1 46717, 3282908, 580462, 870291 ####[facility] Gepkomfh42787 [place] [address] Medical Director: Suman Bell MD Hematocrit (HCT) 43.3 % Normal 36.0-46.0 [facility] Comment on above: Performed By: #### 1 17247, 0128394, 958747, 068405 ####[facility] Lvuifkqd89717 [place] [address] Medical Director: Suman Bell MD Hemoglobin mass conc (Bld) 14.5 g/dL Normal 12.0-16.0 [facility] Comment on above: Performed By: #### 1 20145, 8373796, 343550, 351762 ####[facility] Oyatzdjy71053 [place] [address] Medical Director: Suman Bell MD MCH 32.8 pg Normal 27.0-34.0 [facility] Comment on above: Performed By: #### 1 82075, 1042119, 372761, 436999 ####[facility] Lgtfeamx01738 [place] [address] Medical Director: Suman Bell MD MCHC mass conc (RBC) 33.5 g/dL Normal 32.0-37.0 [facility] Comment on above: Performed By: #### 1 05878, 6911050, 267114, 702837 ####[facility] Zearapdc97089 [place] [address] Medical Director: Suman Bell MD MCV 98.0 fL Normal 80.0-100.0 [facility] Comment on above: Performed By: #### 1 59495, 8435929, 072103, 683300 ####[facility] Oimxqjhk31118 [place] [address] Medical Director: Suman Bell MD Nucleated RBC% 0 /100WC Normal [facility] Comment on above: Performed By: #### 1 34098, 6750965, 252683, 094877 ####[facility] Cmrwzeqc25954 [place] [address] Medical Director: Suman Bell MD Platelet mean volume (PMV) 8.9 fL Normal 7.4-10.4 [facility] Comment on above: Performed By: #### 1 13730, 5803502, 419944, 687656 ####[facility] Rsttogug87484 [place] [address] Medical Director: Suman Bell MD Platelets 310 x1000 Normal 150-450 [facility] Comment on above: Performed By: #### 1 15608, 6448335, 312520, 961449 ####[facility] Enggjbvc75445 [place] [address] Medical Director: Suman Bell MD WBC (Leukocytes) 15.6 x10 High 4.5-11.0 [facility] Comment on above: Performed By: #### 1 00779, 6819351, 579086, 983542 ####[facility] Ffosxvci71071 [place] [address] Medical Director: Suman Bell MD WBC (Leukocytes) 15.6 10*3/uL Normal [facility] Comment on above: Performed By: #### 1 58514, 6927768, 100747, 480575 ####[facility] Lqrakyda99434 [place] [address] Medical Director: Suman Bell MD THY GPon 01-30-2017 Thyroid stimulating hormone (TSH) 0.58 uIU/ml Normal 0.36-3.74 [facility] Comment on above: Performed By: #### 1 08904, 3117007, 725507, 985587 ####[facility] Exrdhunh24504 [place] [address] Medical Director: Suman Bell MD Thyroxine (T4) free 1.11 ng/dL Normal 0.76-1.46 [facility] Comment on above: Performed By: #### 1 85433, 6496819, 739503, 227945 ####[facility] Civlzpok30043 [place] [address] Medical Director: Suman Bell MD U DOAon 01-30-2017 Amphetamines, U Negative Normal [facility] Comment on above: Result Comment: Urin e [...] results are used.Urine for Drugs of Abuse Malone Levels:Barbiturate 200 ng/ml PCP 25 ng/ml Cocaine 300 ng/ml Opiates 2000 ng/ml Amphetamines 1000 ng/ml Benzodiazepines 200 ng/ml THC 50 ng/ml EXTC 500 ng/ml Performed By: #### 1 23188 ####[facility] Iyxmdcuh24706 [place] [address] Medical Director: Suman Bell MD Barbituates, U Negative Normal [facility] Comment on above: Performed By: #### 1 88772 ####[facility] Apdhqbov07144 [place] [address] Medical Director: Suman Bell MD Benzodiazepines, U Negative Normal [facility] Comment on above: Performed By: #### 1 03739 ####[facility] Taarnxzu00857 [place] [address] Medical Director: Suman Bell MD Cocaine, U Negative Normal [facility] Comment on above: Performed By: #### 1 05404 ####[facility] Iiziogzn49595 [place] [address] Medical Director: Suman Bell MD Ecstasy, U Negative Normal [facility] Comment on above: Performed By: #### 1 61475 ####[facility] Kacosnxy73566 [place] [address] Medical Director: Suman Bell MD Opiates, U Negative Normal [facility] Comment on above: Performed By: #### 1 22864 ####[facility] Xoebxlcl09551 [place], [place] [address]) [phone] Director: Suman Bell MD PCP, U Negative Normal [facility] Comment on above: Performed By: #### 1 24651 ####[facility] Fsahsapm41796 [place], [place] [address]) [phone] Director: Suman Bell MD THC, U Negative Normal [facility] Comment on above: Performed By: #### 1 27610 ####[facility] Xeynwrrh69409 [place], [place] [address]) [phone] Director: Suman Bell MD UAon 01-30-2017 U MICRO Indicated Normal [facility] Comment on above: Performed By: #### 1 50957 ####[facility] Asyhdfzp51266 [place], [place] [address]) [phone] Director: Suman Bell MD Appearance, U Clear Normal [facility] Comment on above: Performed By: #### 1 62825 ####[facility] Uozoqhgx26598 [place], [place] [address]) [phone] Director: Suman Bell MD Bacteria, U Occasional Normal [facility] Comment on above: Performed By: #### 1 20501 ####[facility] Syyfkuwc18526 [place], [place] [address]) [phone] Director: Suman Bell MD Bilirubin (direct) Negative Normal Negative [facility] Comment on above: Performed By: #### 1 95537 ####[facility] Pmtfjiin10259 [place], [place] [address]) [phone] Director: Suman Bell MD Blood, U Moderate Abnormal Negative [facility] Comment on above: Performed By: #### 1 53596 ####[facility] Envnnokc88374 [place], [place] [address]) [phone] Director: Suman Bell MD Color, U Yellow Normal [facility] Comment on above: Performed By: #### 1 93427 ####[facility] Hgtxpmwi77816 [place] [address] Medical Director: Suman Bell MD Erythrocytes (RBC) 10*6/uL Normal 0-3 [facility] Comment on above: Performed By: #### 1 20404 ####[facility] Ponclovb49438 [place] [address] Medical Director: Suman Bell MD Glucose Qual, U Negative Normal Negative [facility] Comment on above: Performed By: #### 1 77401 ####[facility] Ixxboijt17923 [place] [address] Medical Director: Suman Bell MD Hyaline Cast <1 Normal [facility] Comment on above: Performed By: #### 1 75196 ####[facility] Urbispzw56210 [place] [address] Medical Director: Suman Bell MD Ketones, U Trace Abnormal Negative [facility] Comment on above: Performed By: #### 1 55902 ####[facility] Gmmjyblz48479 [place] [address] Medical Director: Suman Bell MD Leukocyte Esterase, U Negative Normal Negative [facility] Comment on above: Performed By: #### 1 06972 ####[facility] Xtsgfnqb38161 [place] [address] Medical Director: Suman Bell MD Nitrite, U Negative Normal Negative [facility] Comment on above: Performed By: #### 1 37986 ####[facility] Nsgwgweh83262 [place] [address] Medical Director: Suman Bell MD pH, U 5.0 Normal 4.5-8.0 [facility] Comment on above: Performed By: #### 1 40616 ####[facility] Epbxmpht95525 [place] [address] Medical Director: Suman Bell MD Protein, U Negative Normal Negative [facility] Comment on above: Performed By: #### 1 68310 ####[facility] Nwdsvqmc24927 [place], [place] [address]) [phone] Director: Suman Bell MD Specific Veg[place]a, U 1.011 Normal 1.001-1.035 [facility] Comment on above: Performed By: #### 1 52006 ####[facility] Adtravjy78908 [place], [place] [address]) [phone] Director: Suman Bell MD Squamous Epithelial Cells, U 1 #/HPF Normal [facility] Comment on above: Performed By: #### 1 69060 ####[facility] Oepugejq38122 [place], [place] [address]) [phone] Director: Suman Bell MD Urobilinogen Qual, U <2.0 mg/dl Normal <2.0 mg/dl [facility] Comment on above: Result Comment: EU/d l and mg/dl are equivalent units. Performed By: #### 1 40269 ####[facility] Spwkxqgq87693 [place], [place] [address]) [phone] Director: Suman Bell MD WBC (Leukocytes) 1 #/HPF Normal 0-5 [facility] Comment on above: Performed By: #### 1 08388 ####[facility] [address] [place] [address] Medical Director: Suman Bell MD Vital Signs Date Time Vital Sign Value Performing Clinician Matilde cui 02-02-2025 13:14-0400 Body height 157.[address] Lacey Berumen DO Work Phone: [facility] 02-02-2025 13:14-0400 Body mass index (BMI) [Ratio] 24.2 kg/m2 Dr. Lacey Berumen DO Work Phone: [facility] 02-02-2025 13:14-0400 Body weight 60.[address] Lacey Berumen DO Work Phone: [facility] 02-02-2025 13:14-0400 Diastolic blood pressure 83 mm[Hg] Dr. Lacey Berumen DO Work Phone: [facility] 02-02-2025 13:14-0400 Systolic blood pressure 114 mm[Hg] Dr. Lacey Berumen DO Work Phone: [facility] Encounters Encounter Date Encounter Type Care Provider Facility Start: 02-02-2025 End: 02-02-[address] Lacey [facility]umen [facility] Work Phone: Start: 02-02-2025 End: 02-02-2025 ambulatory Lacey Berumen [facility] Start: 11-14-2022 End: 11-15-2022 ambulatory PHY WO ID REFERRING Facility:A Start: 11-14-2022 End: 11-14-2022 Patient encounter procedure PHY WO ID REFERRING [facility] Start: 01-30-2017 End: 01-30-2017 Emergency department patient visit [facility] Facility:[id number] Plan of Treatment Date Care Activity Detail Author DXA Bone [Mass/Area] Bone density [facility] Glucose [Mass/volume] in Serum or Plasma [facility] Lipid 1996 panel - Serum or Plasma [facility] MG Breast - bilateral Screening [facility] Thyroid stimulating hormone measurement [facility] Vitamin D, 25-hydroxy measurement [facility] Payers Date Payer Category Payer Self-pay 2025 Unknown [id number] 2022 Unknown [id number] 1975 Unknown [id number] Unknown [id number] Social History Date Type Detail Facility Tobacco smoking status [facility] Start: 1975 Sex Assigned At Female [facility] Start: 02-02-2025 Tobacco smoking stat us MDIS Smokes tobacco daily (finding) [facility] Evaluation + Plan note Note Date & Type Note Facility Evaluation + Plan note No data available for this section [facility] Evaluation note Note Date & Type Note Facility Evaluation note No assessment information availa minerva [facility] Work Phone: Hospital Discharge instructions Note Date & Type Note Facility Hospital Discharge instructions No data available for this section [facility] Progress note Note Date & Type Note Facility Progress note No data available for this section [facility] Reason for referral (narrative) Note Date & Type Note Facility Reason for referral (narrative) No reason for referral information available [facility] Work Phone: Summary Purpose Family [...] section and content) DATE CREATED AUTHOR 2018 [facility] DATE CREATED AUTHOR AUTHOR'S ORGANIZ ATION 11/17/2022 [facility] ([place]) DATE CREATED AUTHOR AUTHOR'S ORGANIZ ATION 02/03/2025 [facility] Patient Care team informatio n (unrecognized section [...] BE BASED ON THE PRIMARY CLINICAL RECORDS. [employer] [facility]. provides no warranty or guarantee of the accuracy or completeness of information in this document.
== END 2025-02-05 23:59 | disposition home or self-care (01) ==
LOC: LAB 07:00
PROVIDERS: Referring Provider Obstetrics & Gynecology; Visit Provider Obstetrics & Gynecology
DX: R87.810 Cervical high risk human papillomavirus (HPV) DNA test positive (principal)
CPT/HCPCS: 88305

== ENCOUNTER → 2025-02-15 | Outpatient (CLI) | payer OTHER, SELFPAY ==
--- NOTE | 2025-02-15 14:48 | BI_ITS ---
EXAM: SCRN MAMM (CAD)W/MIRYAM BILAT DATE: 02/15/2025 CLINICAL HISTORY: F, Age 50 y/o , SCREENING FOR MALIGNANT NEOPLASM OF THE BREAST No family history. TECHNIQUE: SCRN MAMM (CAD)W/MIRYAM BILAT COMPARISON: Priors are not available at this time for comparison. FINDINGS: TISSUE DENSITY: The breasts are heterogeneously dense, which may obscure small masses. Bilateral Breast Mammographic Findings: No significant masses, calcifications or other abnormalities are identified. No suspicious masses, areas of developing architectural distortion, or suspicious calcifications. There has been no significant interval change. BI/SCRN MAMM (CAD)W/MIRYAM BILAT IMPRESSION: No suspicious abnormality is seen. OVERALL FINAL ASSESSMENT BI-RADS 1: NEGATIVE. RECOMMENDATION: Routine annual follow-up in 1 Year A letter with findings and recommendations will be mailed to the patient. Reading Location: [id number]
--- NOTE | 2025-02-15 14:48 | BD_ITS ---
PROCEDURE: DEXA BONE DENSITY STUDY 02/15/2025 REASON FOR EXAM: HISTORY OF PREMATURE OVARIAN FAILURE F, age 50 y/o . Postmenopausal. TECHNIQUE: DEXA BONE DENSITY STUDY COMPARISON: None FINDINGS: BMD and T-SCORES Lumbar spine: 0.830 g/cm2, T-score -1.7 Levels: L1 through L4 Left 1/3 radius: 0.526 g/cm2, T-score -1.0 The World Health Organization has defined the following categories based on bone density: Normal bone density: T-score equal to or greater than -1.0 Osteopenia: T-score between -1.0 and -2.5 Osteoporosis: T-score equal to or less than -2.5 The patient does meet the pharmacological treatment recommendations for prevention of osteoporosis. BD/Dexa Bone Density Study IMPRESSION: OSTEOPENIA. Recommend follow-up as clinically warranted. Reading Location: [id number]
== END | disposition home or self-care (01) ==
LOC: OPBD 14:46
PROVIDERS: Referring Provider Obstetrics & Gynecology; Visit Provider Obstetrics & Gynecology
DX: Z12.31 Encounter for screening mammogram for malignant neoplasm of breast (principal); Z78.0 Asymptomatic menopausal state
CPT/HCPCS: 77063; 77067; 77080

== ENCOUNTER 2025-03-06 13:15 | Day surgery (SDC) | payer OTHER, SELFPAY ==
[2025-02-26 15:53] LABS: Hematocrit 36.7 % (37-47); Hemoglobin 12.7 g/dL (12.0-15.0); Mean Corp Hgb Conc 34.6 g/dL (32-36); Mean Corpuscular Volume 91.8 fL (81-99); Mean Platelet Vol. 11.3 fl (6.2-12.0); Platelet Count 220 K/mm3 (150-450); RBC Distribution Width CV 12.4 % (11.6-14.6); RBC Distribution Width SD 42.3 fl (35.1-43.9); Red Blood Count 4.00 M/mm3 (4.2-5.4); White Blood Count 5.4 K/mm3 (4.4-11.0)
[2025-02-26 16:43] LABS: Cholesterol 174 mg/dL (<=200); Glucose 82 mg/dL (70-99); Low Density Lipoprotein Calc. 104 mg/dL; Triglycerides 86 mg/dL; Very Low Density Lipoprotein 17 mg/dL (5-40); Vitamin D,25 Hydroxy 48.0 ng/mL (30-100); cholesterol:hdl ratio screen 3.31
[2025-03-06] VITALS (9 sets, daily range): BP systolic 95–125; BP diastolic 64–76; PULSE 70–96; RESP 14–18; TEMP 36.1–36.4; O2SAT 96–100; BMI 23.8
[2025-03-06] MEDS: Lactated Ringers 1,000 ML 15 ML IV (13:52)
--- NOTE | 2025-03-06 14:10 | HP.PCM_ITS ---
History and Physical Date of Admission: 03/06/25 Intake Vital Signs 02/02/2513:14 02/26/2513:03 02/26/2513:04 Height 5 ft 2 in 5 ft 2 in 5 ft 2 in Weight: 132 lb 6 oz 132 lb 6 oz BMI 24.2 24.2 BP 114/83 H 107/74 Intake Visit Reasons: LEEP Academic Success Coordinator Required: No Is patient in pain?: No Allergies No Known Allergies Allergy (Verified 02/26/25 13:03) Medications ?Medication ?Instructions ?Recorded ?Confirmed ?Type multivitamin 1 tab PO QDAY 02/02/25 02/26/25 History calcium carbonate 600 mg PO DAILY 02/21/25 02/26/25 Histor y Post menopausal: No Patient : No : No [facility] Medical History Tinnitus Loss of hearing Wears glasses Anxiety PTSD (post-traumatic stress disorder) Marijuana use Alcohol use Arthritis Low iron Easy bruising Injury of back Blackout History of ulceration Vapes nicotine containing substance Former smoker History of pain when walking Surgical History History of dental surgery S/P tubal ligation Social History adopted: Yes (foster care) Smoking Status: Current every day smoker tobacco type: cigarettes and e- cigarettes alcohol intake: former year quit: 2016 substance use type: marijuana what type of physical activity do you participate in: swimming frequency: 3-4 times per week seatbelt use: always do you feel safe at home: Yes additional social history: Boyfriend- Alberto HPI LEEP Details: CHAVEZ ESPINOSA is a 50 year old who presents for preop LEEP procedure. She wonders if a hysterectomy can be done instead. Pathology of Colposcopy shows the following: A. Endocervix, ASCUS, HPV positive, curettage: - Focal atypical squamous mucosa with probable dysplasia ? see note. - Scant benign endocervical epithelium. Note: The squamous epithelial fragment is very small and only a few cell layers thick so it is difficult to assess the dysplasia. A high grade dysplasia cannot be ruled out. B. Cervix, 7 o?clock, ASCUS, HPV positive, biopsy: - High grade SANTO (moderate dysplasia, YUE 2) History 1 Elective abortions Hx Para 1 Spontaneous abortions Hx # Term Pregnancies Ectopic pregnancies Hx # Pregnancies Multiple births # of living children ROS Const ROS Unobtainable: All systems reviewed & are unremarkable except as noted in H Resp Resp: Reports system reviewed and no additional complaints, except as documented; Denies cough GI GI: Reports as per HPI Psych Psych: Reports system reviewed and no additional complaints, except as documented Exam Const General: cooperative, healthy appearing, comfortable and no acute distress Resp Effort & Inspection: normal respiratory effort Skin General: no rashes or lesions noted Psych Appearance: grossly normal Speech and Movement: speech and movement normal Coding Level of Care Code Off vis,est,level 4 Diagnoses High grade squamous intraepithelial cervical dysplasia R87.613 Assessment and Plan Assessment and Plan (1) High grade squamous intraepithelial cervical dysplasia: Status: Acute Plan: After discussing the patient's diagnosis and treatment plan options, patient wishes to proceed with surgical management. I have discussed with the patient the risks, benefits, and alternatives of the procedure which include but are not limited to risks of anesthesia, bleeding, infection, possible damage to bowel, bladder, or surrounding vasculature which could lead to additional surgery to evaluate any complications. Patient agrees to procedure and wishes to proceed. ACOG/uptodate references given for additional information regarding procedure. plan for LEEP procedure. pending pathology we may discuss hysterectomy.
--- NOTE | 2025-03-06 14:10 | DCINST_ITS ---
Discharge Instructions DC O2, CPAP, BIPAP needs Home O2 Discharge instructions: No Dressing / Incision Discharge Activity: Return to Normal Activity and May Drive (while taking narcotic pain mediations.) May resume sexual activity in: 4 weeks (Nothing in the vagina for 4 weeks.) Dressing / Incision Call your doctor if you observe: Fever of 101 or Higher and Using more than 1 pad per hour Follow Up Care Please Follow Up With: Lacey Berumen DO When: Call [phone] for follow-up appointment. Test Results: Test results from this visit will be discussed in further detail at your follow- up appointment, if applicable. Discharge Plan Admission Primary Reason for Your Visit: JANIS Attending Provider: Lacey Berumen Primary Care Provider: Hospital,[facility] Instructions Print Language: Jordanian Discharge Orders/Prescriptions Prescriptions: New ibuprofen 800 mg tablet 800 mg PO Q8H PRN (Reason: pain) Qty: 20 0RF No Action multivitamin Tablet 1 tab PO QDAY calcium carbonate 600 mg calcium (1,500 mg) tablet 600 mg PO DAILY Disposition Disposition (needs filled in before D/C Order can be placed): Home, Self Care
--- NOTE | 2025-03-06 14:31 | PCM.PRE.AN2 ---
ASA Classification* ASA Classification ASA Classification: 2 Assessment & Plan Anesthesia* Anesthesia Assessment Anesthesia Assessment: Discussed sedation and/or anesthesia options, risks, benefits, and alternatives with patient/parents/legal guardian/POA. Questions invited. The patient/parents/legal guardian/POA seems to understand and agrees to proceed with anesthesia plan. Reviewed the physical assessment, medical history, allergy history and patient home medications list prior to surgery/procedure/anesthetic and documented any changes. Performed airway and anesthesia risk assessments. Anesthesia Type Anesthesia Type: MAC History Source History Obtained from:: Patient and Chart Anesthesia Focused Assessment* Temperature: 97.6 F Pulse Rate: 70 Blood Pressure: 125/76 Respiratory Rate: 18 Pulse Ox: 100 Oxygen Delivery Method: Room Air Airway Assessment Mouth opens: >3 cm Mallampati Score: III Teeth Condition: Implants (Patient has all in four dental implants.) Neck Range of motion (ROM): Limited ROM (Slight Decrease) Labs Anesthesia Preop lab: CBC WBC 5.4 K/mm3 (4.4-11.0) 02/26/25 13:34 02/26/25 RBC 4.00 M/mm3 (4.2-5.4) L 02/26/25 13:34 02/26/25 Hgb 12.7 g/dL (12.0-15.0) 02/26/25 13:34 02/26/25 Hct 36.7 % (37-47) L 02/26/25 13:34 02/26/25 Plt Count 220 K/mm3 (150-450) 02/26/25 13:34 02/26/25 CHEMISTRY Glucose 82 mg/dL (70-99) 02/26/25 13:34 02/26/25 TSH 1.050 uIU/mL (0.300-4.200) 02/26/25 13:34 02/26/25 COAG Pre-Assessment Diagnosis/Proposed Procedure Planned Operative Procedure(s): LEEP CONE Anesthesia History Anesthesia History - site safety representative: Anesthesia History - site safety representative Hx Hospitalization No 02/21/25 14:10 Any Problems With Anesthesia No 02/21/25 14:10 Cholinesterase deficiency No 02/21/25 14:10 You/Your Family Experience No 02/21/25 14:10 fever (hyperthermia) with Relationship Recent Exposure to Contagious No 03/06/25 13:39 Disease Does patient have nerve No 02/21/25 14:10 stimulator Patient instructed to have device shut off --Does patient have Pacemaker No 03/06/25 13:39 or ICD? When Was Last Pacemaker Check QUESTION #4 FULL TEXT: You/Your Family Experience fever (hyperthermia) with Anesthesia Last Oral Intake Last Oral intake: Last Oral Intake NPO since 22:00 03/06/25 13:39 Meds taken in AM with sips of No 03/06/25 13:39 water? Meds patient instructed to take am of surgery Any additional information?: Yes NPO since: 10:00 (Patient had water at 10 AM.) Meds taken in AM with sips of water?: No PONV PONV - site safety representative: PONV - site safety representative Female Yes 02/21/25 14:10 HX of Motion Sickness No 02/21/25 14:10 HX of N/V After Surgery No 02/21/25 14:10 Non-Smoker No 02/21/25 14:10 Duration of Surgery greater No 02/21/25 14:10 than 60 minutes Number of Risk Factors 1 02/21/25 14:10 PONV Score Low Risk 02/21/25 14:10 Height & Weight Height & Weight: Anesthesia: Height & Weight Height 5 ft 2 in 03/06/25 13:39 Weight: 59 kg 03/06/25 13:39 Body Mass Index (BMI) 23.8 03/06/25 13:39 Respiratory Assessment Respiratory Assessment - site safety representative: Respiratory Tract Infection Hx - site safety representative Hx Respiratory Tract Infection No 02/21/25 14:10 STOP Sleep Apnea STOP Sleep Apnea - site safety representative: STOP Sleep Apnea - site safety representative Hx Hypertension No 02/21/25 14:10 Hx Sleep Apnea No 02/21/25 14:10 CPAP BIPAP Do you snore loudly (louder No 02/21/25 14:10 than talking or can be heard Do you often feel tired/ No 02/21/25 14:10 fatigued/ sleepy during daytime? Has anyone observed you stop No 02/21/25 14:10 breathing during sleep? STOP Results Negative 02/21/25 14:10 QUESTION #5 FULL TEXT : Do you snore loudly (louder than talking or can be heard through closed doors)? Tobacco Use History Tobacco Use History - site safety representative: Tobacco Use History - site safety representative Tobacco Use Smoking Status Current every day smoker 02/21/25 14:10 Hx Tobacco Use Yes 02/21/25 14:10 Years Smoking Packs Smoked per Day Smoking Cessation Date was within the last 15 years Hx Smoking Cessation Date Hx Smoking Cessation Counseling Any additional information?: Yes Tobacco Use: Vapor (Patient used a vape today.) Hematologic Medial History Hematologic Hx - site safety representative: Hematologic Medical Hx - dresser tender Hx of Blood Transfusion No 02/21/25 14:10 Hx of Transfusion in last 3 No 02/21/25 14:10 Months Date of Last Transfusion (if within last 3 months) Ever experience any problems No 02/21/25 14:10 with transfusion(s)? Specify any problems Hx of Preganancy in last 3 No 02/21/25 14:10 Months Nurse Filling Out Transfusion DSCHRIBER 02/21/25 14:10 & Questions: Date: 02/21/25 02/21/25 14:10 Time: 14:11 02/21/25 14:10 Patient unable to answer at this time (ie. confused, unrespo /Reproduction History /Reproductive History - site safety representative: /Reproductive Hx- site safety representative Hx Now No 02/21/25 14:10 Gestational Age (in weeks): EDC: Hx Hx Para Hx Section SAB No 02/26/25 13:04 Active Medications Active Medications: Current Medications Generic Name Dose Route Start Last Admin Trade Name Freq PRN Reason Stop Dose Admin Lactated Ringer's 1,000 mls @ 15 mls/hr 03/06/25 13:30 03/06/25 13:52 IV 15 mls/hr .Q48H JATIN Administration PFSH Medical History Tinnitus Loss of hearing Wears glasses Anxiety PTSD (post-traumatic stress disorder) Marijuana use Alcohol use Arthritis Low iron Easy bruising Injury of back Blackout History of ulceration Vapes nicotine containing substance Former smoker History of pain when walking Home Medications ?Medication ?Instructions ?Recorded ?Last Taken ?Type multivitamin 1 tab PO QDAY 02/02/25 03/05/25 History calcium carbonate 600 mg PO DAILY 02/21/25 03/05/25 History ibuprofen 800 mg tablet 800 mg PO Q8H PRN pain #20 tabs 03/06/25 Unknown Rx Allergy/AdvReac Type Severity Reaction Status Date / Time No Known Allergies Allergy Verified 03/06/25 13:35 Surgical History History of dental surgery S/P tubal ligation Social History adopted: Yes (foster care) Smoking Status: Current every day smoker tobacco type: cigarettes and e-cigarettes alcohol intake: former year quit: 2016 substance use type: marijuana what type of physical activity do you participate in: swimming frequency: 3-4 times per week seatbelt use: always do you feel safe at home: Yes additional social history: Boyfriend- Alberto Review of Systems (Anesthesia) ROS Narrative System reviewed and no additional complaints, except as documented.
--- NOTE | 2025-03-06 15:30 | CONE_PTH ---
PATIENT: CHAVEZ ESPINOSA LOC: [facility] U#:[id number] AGE/SX: 50/F ROOM: RE03/06/[address]: Dr. Lacey Berumen DO : 1975 BED: DIS: 03/06/2025 SPEC #: [id number] RECD: 03/06/25 18:16 STATUS: JANA MANJU #: [id number] RIVER: 03/06/25 15:[address]: Lacey Berumen DEPT: SURGICAL PATHOLOGY RECD BY: Ghulam Raymond ENTERED: 03/07/25 11:05 SP TYPE: Leep Cone COLT DR: [facility] Tissues: A - Endocervical B - UTERINE CERVIX LEEP Procedures: Surgery Specimen Level IV Surgery Specimen Level V HEADER OPERATION: Loop electricosurgical excision procedure, endocervical curetting PRE-OP DIAGNOSIS: High grade squamous intraepithelial lesion TISSUE SUBMITTED: A- ECC, B- Leep Cone MICROSCOPIC DIAGNOSIS A. Endocervix, curettage: * Strips of benign endocervical mucous columnar epithelium and basophilic mucinous secretory material B. Uterine cervix, loop electrosurgical excision procedure: * Low grade squamous intraepithelial lesion (YUE I) with an extensively denuded transition zone * Squamous metaplasia and chronic cystic endocervicitis MICROSCOPIC DESCRIPTION Slides are reviewed. GROSS DESCRIPTION Received in 2 formalin containers labeled with the patient's name and date of . Designated as: A. ECC is a 0.9 x 0.3 x <0.1 cm aggregate of mucoid material admixed with flecks of possible soft tissue. Entirely submitted 1 cassette. The entirety of the specimen may not survive processing. B. LEEP cone is a 1.2 x 1.1 x 0.8 cm capps-pink focally granular and erythematous cervix with an undesignated suture. The [facility] is [facility] 12[facility] The ectocervix is inked black and the endocervix is inked orange. The specimen is radially sectioned from 12:00 in a clockwise fashion and entirely submitted in 4 cassettes as follows: B1: 12:00 to 3:00B2: 3:00 to 6:00B3: 6:00 to 9:00B4: 9:00 to 12:00 AR 03/07/2025 CPT:15897,59664
[2025-03-06] MEDS: Midazolam 2 MG/2 ML Syringe IV (15:39)
[2025-03-06] MEDS: Lidocaine 1% (5 ml sdv) 5 ML Vial 4 ML IV (15:40)
[2025-03-06] MEDS: Lidocaine 1% /Epi 1:100 (20ml) 20 ML Vial (16:00)
[2025-03-06] MEDS: FERRIC SUBSULFATE 8 GM SOLN (16:01)
[2025-03-06] MEDS: Iodine/Potassium Iodide 14ML Bottle 1 DRP TOPICAL (16:05)
--- NOTE | 2025-03-06 16:10 | PCM.OPRPT ---
Problems Associated Problem List Diagnoses (1) High grade squamous intraepithelial cervical dysplasia: Multi Select Codes Urinary/Genital Urinary/Genital CPT Codes: 08435 LEEP Operative Report (Standard) Operative Information Date of Procedure: 03/06/25 Pre-Operative Diagnosis: High grade SANTO (moderate dysplasia, YUE 2) Post-Operative Diagnosis: High grade SANTO (moderate dysplasia, UYE 2) Surgery/Procedure Performed: Loop electrocautery excisional procedure (LEEP) retail shift manager: No Type of Anesthesia: MAC and Topical Anesth RN Documented Start/Stop Times: Operation Date: 03/06/25 15:30 Case Time Into Pre-Op 03/06/25 13:25 Out of Pre-Op 03/06/25 15:35 Procedure Start Time: 15:35 Procedure Stop Time: 16:07 Select all DRAINS/GRAFTS/IMPLANTS that apply: None Estimated Blood Loss: 0 Specimen collected: Yes Description of specimen(s) removed: cervical leep (biopsy) Description of surgery: Patient was taken to the operating room and placed under MAC anesthesia prepped and draped in normal sterile fashion the dorsal lithotomy position. Lugol's solution was applied to the cervix to find boarders of irregularities. Paracervical block was placed with 1% lidocaine. An ECC was performed first. Next, using a loop electrode, the outer portion of the cervix was removed including the squamocolumnar junction. The base of the cervix was cauterized around the borders and the base to obtain hemostasis. Monsel's paste was placed and patient was awoken and taken recovery in stable condition. Surgical Findings: grossly normal appearing cervix. Complications Complications: No Admit VTE Documentation VTE Present on Admission: No VTE Mechan Device Prophylaxis: [facility]'s VTE Pharm Prophylaxis ordered?: No
--- NOTE | 2025-03-06 16:18 | PCM.POST.ANE ---
Anesthesia: Postop Eval I Current Vital Signs Temperature: 97.5 F Pulse Rate: 86 Blood Pressure: 95/64 Respiratory Rate: 16 Pulse Ox: 96 Oxygen Delivery Method: Room Air Assessment Airway patent: Yes Spontaneous unlabored respirations: Yes Mental status: Awake and Calm nausea: No Vomiting: No Anesthesia Complication: No Fluid Hydration Crystalloid volume administer (ml): 1,400 (1,000 mL infused pre-op, 400 mL in OR) Total IV fluid infused: 1,400 Progress Note Anesthesia document: Postop Eval 1 completed: Yes
[2025-03-06] MEDS: HYDROcodone Bitartrate/Apap 5/325 Tablet PO (16:50)
--- NOTE | 2025-03-06 17:15 | POSTOPAN2_ITS ---
Anesthesia Postop Eval I Sum Postop Eval Completion status Anesthesia document: Postop Eval 1 completed: Yes Anesthesia Postop Eval I Summary Anesthesia Postop Eval I Summary: Anesthesia Postop Eval I: Assessment Summary Airway patent Yes 03/06/25 16:19 DESULFURIZER MACHINE.SKOBY Spontaneous unlabored Yes 03/06/25 16:19 DESULFURIZER MACHINE.TAMMI respirations Mental status Awake,Calm 03/06/25 16:19 DESULFURIZER MACHINE.SKOBY nausea No 03/06/25 16:19 DESULFURIZER MACHINE.ELLIOBDale Vomiting No 03/06/25 16:19 DESULFURIZER MACHINE.ELLIOBDale Anesthesia Postop Eval I: Fluid Summary Crystalloid volume administer 1,400 - 1,000 mL 03/06/25 16:19 DESULFURIZER MACHINE.SKOBY (ml) infused pre-op, 400 mL in OR Colloids volume administered ( ml) Blood Product volume administered (ml) Total IV fluid infused 1,400 03/06/25 16:19 DESULFURIZER MACHINE.TAMMI Anesthesia Postop Eval I: Summary Notes Anesthesia Complication No 03/06/25 16:19 DESULFURIZER MACHINE.TAMMI Anesthesia Complication Comment: Post-operative progress note Anesthesia: Postop Eval II Evaluation Mental status: Awake and Calm Pain Level: 1 nausea: No Vomiting: No Complications Anesthesia Complication: No
--- NOTE | 2025-03-06 17:15 | PCM.POSTANE2 ---
Anesthesia Postop Eval I Sum Postop Eval Completion status Anesthesia document: Postop Eval 1 completed: Yes Anesthesia Postop Eval I Summary Anesthesia Postop Eval I Summary: Anesthesia Postop Eval I: Assessment Summary Airway patent Yes 03/06/25 16:19 ABSORPTION OPERATOR.SKOBY Spontaneous unlabored Yes 03/06/25 16:19 ABSORPTION OPERATOR.TAMMI respirations Mental status Awake,Calm 03/06/25 16:19 ABSORPTION OPERATOR.SKOBY nausea No 03/06/25 16:19 ABSORPTION OPERATOR.ELLIOBDale Vomiting No 03/06/25 16:19 ABSORPTION OPERATOR.ELLIOBDale Anesthesia Postop Eval I: Fluid Summary Crystalloid volume administer 1,400 - 1,000 mL 03/06/25 16:19 ABSORPTION OPERATOR.SKOBY (ml) infused pre-op, 400 mL in OR Colloids volume administered ( ml) Blood Product volume administered (ml) Total IV fluid infused 1,400 03/06/25 16:19 ABSORPTION OPERATOR.TAMMI Anesthesia Postop Eval I: Summary Notes Anesthesia Complication No 03/06/25 16:19 ABSORPTION OPERATOR.TAMMI Anesthesia Complication Comment: Post-operative progress note Anesthesia: Postop Eval II Evaluation Mental status: Awake and Calm Pain Level: 1 nausea: No Vomiting: No Complications Anesthesia Complication: No
== END 2025-03-06 17:08 | disposition home or self-care (01) ==
LOC: SDC 13:16 → AC 13:16
PROVIDERS: Referring Provider Obstetrics & Gynecology; Visit Provider Obstetrics & Gynecology
PROC: 0UBC7ZZ Excision of Cervix, Via Natural or Artificial Opening (ICD-10-PCS; CPT 57522; principal; 2025-03-06 15:15)
DX: N87.0 Mild cervical dysplasia (principal); F17.210 Nicotine dependence, cigarettes, uncomplicated; F17.290 Nicotine dependence, other tobacco product, uncomplicated; N72 Inflammatory disease of cervix uteri
CPT/HCPCS: 57522; 00940; 36415; 80061; 82306; 82947; 84443; 85027; 86850; 86900; 86901; 88305; 88307; J2405